=== PATIENT | female | born 1960 | race Caucasian/White ===

== ENCOUNTER → 2023-07-08 09:47 | Outpatient (REF) | payer OTHER, SELFPAY | LOC: HWRAD 09:47 | PROVIDERS: ATTENDING PHYSICIAN Family Medicine; REFERRING PHYSICIAN Obstetrics & Gynecology | DX: Z13.820 Encounter for screening for osteoporosis (principal) | CPT/HCPCS: 77080 ==

== ENCOUNTER → 2023-07-15 09:36 | Outpatient (REF) | payer OTHER, SELFPAY | LOC: HWRAD 09:36 | PROVIDERS: ATTENDING PHYSICIAN Family Medicine | DX: M25.551 Pain in right hip (principal) | CPT/HCPCS: 73502 ==

== ENCOUNTER → 2024-01-06 12:58 | Outpatient (REF) | payer OTHER, SELFPAY | LOC: HWWDC 12:58 | PROVIDERS: ATTENDING PHYSICIAN Obstetrics & Gynecology; FAMILY PHYSICIAN Family Medicine | DX: Z12.31 Encounter for screening mammogram for malignant neoplasm of breast (principal) | CPT/HCPCS: 77063; 77067 ==